=== PATIENT | male | born 1975 | race Caucasian/White ===

== ENCOUNTER 2021-10-08 23:15 | Emergency (ER) | payer BC ==
[~2021-10-08] VITALS: Ht 180.3 cm; Wt 74.8 kg
--- NOTE | 2021-10-08 23:27 | NUR ---
Dr Cazares at bedside for MSE.
[2021-10-09] MEDS: methylPREDNISolone SOD SUCC 125 MG/2 ML VIAL IV ONE (00:20)
[2021-10-09] MEDS ORDERED: methylPREDNISolone SOD SUCC 125 MG/2 ML VIAL ONE (00:27)
[2021-10-09] MEDS ORDERED: PRED20TA PO (03:55)
[2021-10-09] MEDS ORDERED: FAMO-132 PO (03:55)
--- NOTE | 2021-10-09 04:04 | NUR ---
Patient discharged to home in stable condition. Written and verbal after care instructions given. Patient verbalizes understanding of instructions. Stressed follow up or return to ER for worsening s/s. pt ambulated with steady gait. denies pain. no sob. no chest pain
[2021-10-09 04:05] VITALS: BP 138/69
== END 2021-10-09 04:06 | disposition home or self-care (01) ==
LOC: ER 23:30
DX: T78.1XXA Other adverse food reactions, not elsewhere classified, initial encounter (principal); R49.0 Dysphonia; X58.XXXA Exposure to other specified factors, initial encounter; Z91.041 Radiographic dye allergy status; F41.9 Anxiety disorder, unspecified; R03.0 Elevated blood-pressure reading, without diagnosis of hypertension
CPT/HCPCS: 96374; 99284; J2930; A4663